=== PATIENT | female | born 1985 | race Caucasian/White ===

== ENCOUNTER 2018-11-08 12:41 | Emergency (ER) | payer OTHER ==
--- OUTSIDE RECORDS SUMMARY | 2018-11-08 12:55 | XMS REPORT | Continuity of Care Document ---
:1985 External Reference #:[id number] Author Name Oumou Pretty MD (transmitted by agent of provider Sierra Ellison) Address [address] [place] [id number] Care Team Providers Name Role Phone Tay Verduzco DO - Family Medicine Care Team Information [employer]ver [phone] Problems Active Problems Provider Date Mixed hyperlipidemia Tay Verduzco D.O. Onset: 12/19/2011 Benign essential hypertension Tay Verduzco D.O. 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 Onset: 2017 Peptic reflux disease Tay Verduzco D.O. Onset: 12/19/2011 Disorder of lumbar disc Tay Verduzco D.O. Onset: 12/19/2011 Neck pain Tay Verduzco D.O. Onset: 12/19/2011 Generalized anxiety disorder Tay Verduzco D.O. Onset: 12/19/2011 Chronic rhinitis Neelima Fajardo N.P. Onset: 09/26/2016 Moderate recurrent major depression Neelima Fajardo N.P. Onset: 11/04/2017 Gastroesophageal reflux disease Oumou Pretty MD Onset: 03/26/2018 Social History Type Date Description Comments Sex Unknown Tobacco Use Start: Unknown current cigarette smoker 1/2 ppd x 16yrs Smoking Status Reviewed: 11/02/18 current cigarette smoker 1/2 ppd x 16yrs ETOH Use Denies alcohol use Tobacco Use Start: Unknown Patient is a current 10 cigs/day since smoker, smokes every day age 14yo. Recreational Drug Use Denies Drug Use Guns in Home Yes Smoke Alarms Yes Allergies, Adverse Reactions, Alerts Active Allergies Reaction Severity Comments Date Augmentin caused MRSA 04/01/2017 Inactive Allergies NKDA 12/20/2011 Medications Active Medications SIG Qnty Indications Ordering Provider Date Adderall 1 tab by mouth 60tabs R41.840 Amogechukwu N 10/06/2018 20mg Tablets twice a day MD Maria De Jesus Buspirone HCL 1 tab by mouth 30tabs F40.248 Amogechukwu N 07/30/2018 10mg twice a day as MD Maria De Jesus Tablets needed Montelukast Sodium Take One Tablet 90tabs J45.909 Neelima Fajardo, N.P. 06/2018 By Mouth Every 10mg Tablets Day Omeprazole 1 by mouth 30caps K21.9 Amogechukwu N 03/26/2018 40mg every day MD Maria De Jesus Capsules DR Symbicort 2 puff twice a 1units J44.9 Neelima Fajardo, N.P. 07/01/2017 day 80-4.5mcg/Act Aerosol Vitamin D take 1 capsule 12caps E55.9 Neelima Fajardo, N.P. 05/30/2017 (Ergocalciferol) by mouth every week for 3 [id number] Capsules months Cetirizine HCL take one tablet 30tabs J31.0 Neelima Fajardo, N.P. 04/22/2017 10mg by mouth every Tablets day Ventolin HFA 2 puffs every 18units Neelima Fajardo, N.P. 03/20/2017 4-6hrs as 108(90Base) mcg/Act needed Aerosol Immunizations CPT Code Status Date Vaccine Lot # [id number] Given 06/15/2012 Tdap (Adacel) Ages 7 And Above Only 54038 Refused 12/25/2017 Influenza Virus Vaccine,Quadrivalent,Split,Preserv Free 3 Yrs+ [id number] Refused 02/26/2017 Influenza Virus Vaccine,Quadrivalent,Split,Preserv Free 3 Yrs+ 33673 Refused 01/11/2016 Influenza Vac, 3 Yrs & Older, Quadrivalent, Split, Im Use 09664 Refused 03/31/2015 Influenza Vac, 3 Yrs & Older, Quadrivalent, Split, [place] Use [address]13 Refused 03/03/2015 Influenza Vac, 3 Yrs & Older, Quadrivalent, Split, [place] Use [address]19 Refused 02/25/2015 Influenza Vac, 3 Yrs & Older, Quadrivalent, Split, Im Use 08835 Refused 12/24/2014 Influenza Vac, 3 Yrs & Older, Quadrivalent, Split, Im Use [id number] Refused 11/14/2014 Fluzone Trivalent Immunization Q2038 Refused 12/21/2013 Fluzone Trivalent Immunization Vital Signs Date Vital Result Comment 07/30/2018 12:33pm Body Temperature 98.6 F tympanic Weight 171.00 lb Heart Rate 110 /min BP Systolic Sitting 122 mmHg L Arm BP Diastolic Sitting 98 mmHg L Arm Respiratory Rate 20 /min Height 62 inches 5'2" BMI (Body Mass Index) 31.3 kg/m2 O2 % BldC Oximetry 100 % Room Air Height in cm's 157.5 cm 04/30/2018 9:04am Body Temperature 98.2 F tympanic Weight 173.00 lb Heart Rate 90 /min BP Systolic 110 mmHg L Arm BP Diastolic 80 mmHg L Arm Respiratory Rate 18 /min Height 62 inches 5'2" BMI (Body Mass Index) 31.6 kg/m2 O2 % BldC Oximetry 99 % Room Air Height in cm's 157.5 cm Results Description No Information Available Procedures Description No Information Available Medical Devices Description No Information Available Encounters Type Date Location Provider Dx Diagnosis Office Visit 07/30/2018 Compassionate Oumou Albert R41.840 Attention and 11:30a Family MD Maria De Jesus concentration [facility] deficit F40.248 Other situational type phobia Assessments Date Code Description Provider 07/30/2018 R41.840 Attention and concentration deficit Oumou Pretty MD 07/30/2018 F40.248 Other situational type phobia Oumou Pretty MD Plan of Treatment No Information Available Functional Status Description No Information Available Mental Status Description No Information Available Referrals Description No Information Available
--- OUTSIDE RECORDS SUMMARY | 2018-11-08 12:55 | XMS REPORT | Continuity of Care Document ---
:1985 External Reference #:[id number] Author Name Oumou Pretty MD Address [address] [place] [id number] Care Team Providers Name Role Phone Tay Verduzco DO - Family Medicine Care Team Information [employer] Client [employer] [phone] Problems Active Problems Provider Date Mixed hyperlipidemia [...] reflux disease Oumou Pretty MD Onset: 03/26/2018 Obesity Oumou Pretty MD Onset: 11/02/2018 Allergic rhinitis Oumou Pretty MD Onset: 11/02/2018 Mild intermittent asthma Oumou Pretty MD Onset: 11/02/2018 Social History Type Date Description Comments Sex [...] twice a day MD Maria De Jesus Montelukast Sodium Take One Tablet 90tabs J30.89 Ammartinu N 04/14/2018 By Mouth Every MD Maria De Jesus 10mg Tablets Day Omeprazole 1 by mouth 30caps K21.9 Ambrigittechsarikau N 03/26/2018 40mg every day MD Maria De Jesus Capsules DR Vitamin D take 1 capsule 12caps E55.9 Ambrigittechukwu N 05/30/2017 (Ergocalciferol) by mouth every MD Maria De Jesus week for 3 30195Mmmy Capsules months Cetirizine HCL take one tablet 30tabs J30.89 Tomásu N 04/22/2017 10mg by mouth every MD Maria De Jesus Tablets day Ventolin HFA 2 puffs every 18units J45.20 Oumou N 03/20/2017 4-6hrs as MD Maria De Jesus 108(90Base) mcg/Act needed Aerosol History Medications Buspirone HCL 1 tab by mouth 30tabs F40.248 Amogechwu N 07/30/2018 - twice a day as MD Maria De Jesus 11/02/2018 10mg Tablets needed Immunizations CPT Code Status Date Vaccine Lot # [id number] Given 06/15/2012 Tdap (Adacel) Ages 7 And Above Only 27194 Refused 11/02/2018 Influenza Virus Vaccine,Quadrivalent,Split,Preserv Free 3 Yrs+ 02300 Refused 11/02/2018 Influenza, Preservative Free 3 Years And Older 50846 Refused 12/25/2017 Influenza Virus Vaccine,Quadrivalent,Split,Preserv Free 3 Yrs+ 43955 Refused 02/26/2017 Influenza Virus Vaccine,Quadrivalent,Split,Preserv Free 3 Yrs+ 77153 Refused 01/11/2016 Influenza Vac, 3 Yrs & Older, Quadrivalent, Split, [place] Use 81412 Refused 03/31/2015 Influenza Vac, 3 Yrs & Older, Quadrivalent, Split, [place] Use 51053 Refused 03/03/2015 Influenza Vac, 3 Yrs & Older, Quadrivalent, Split, Im Use 16805 Refused 02/25/2015 Influenza Vac, 3 Yrs & Older, Quadrivalent, Split, [place] Use [address] Refused 12/24/2014 Influenza Vac, 3 Yrs & Older, Quadrivalent, Split, Im Use Q2038 Refused 11/14/2014 Fluzone Trivalent Immunization Q2038 Refused 12/21/2013 Fluzone Trivalent Immunization Vital Signs Date Vital Result Comment 11/02/2018 9:12am Body Temperature 97.9 F tympanic Weight 167.00 lb Heart Rate 86 /min BP Systolic Sitting 120 mmHg L Arm BP Diastolic Sitting 80 mmHg L Arm Respiratory Rate 18 /min Height 62 inches 5'2" BMI (Body Mass Index) 30.5 kg/m2 O2 % BldC Oximetry 98 % Room Air Height in cm's 157.5 cm 07/30/2018 12:33pm Body Temperature 98.6 F tympanic [...] type phobia Assessments Date Code Description Provider 11/02/2018 R41.840 Attention and concentration deficit Oumou Pretty MD 11/02/2018 F17.210 Nicotine dependence, cigarettes, Oumou Pretty MD uncomplicated 11/02/2018 E66.09 Other obesity due to excess calories Oumou Pretty MD 11/02/2018 K21.9 Gastro-esophageal reflux disease without Oumou Pretty MD esophagitis 11/02/2018 J30.89 Other allergic rhinitis Oumou Pretty MD 11/02/2018 J45.20 Mild intermittent asthma, uncomplicated Oumou Pretty MD 11/02/2018 E55.9 Vitamin D deficiency, unspecified Oumou Pretty MD 11/02/2018 Z23 Encounter for immunization Oumou Pretty MD 11/02/2018 Z28.21 Immunization not carried out because of Oumou Pretty MD patient refusal 11/02/2018 Z12.31 Encounter for screening mammogram for Oumou Prtety MD malignant neoplasm of breast 11/02/2018 Z68.30 Body mass index (BMI) 30.0-30.9, adult Oumou Pretty MD 07/30/2018 R41.840 Attention and concentration deficit Oumou Pretty MD 07/30/2018 F40.248 Other situational type phobia Oumou Pretty MD Plan of Treatment Future Appointment(s):04/12/2019 9:00 am - Oumou Pretty MD at [facility]03/15/2019 10:30 am - Oumou Pretty MD at [facility]02/01/2019 9:45 am - Oumou Pretty MD at [facility]11/02/2018 - Oumou Pretty, MDR41.840 Attention and concentration deficitFollow up: CPE/8oecfL88.210 Nicotine dependence, cigarettes, kqfmlpxvgzqqxJ57.09 Other obesity due to excess zrilblwsX59.9 Gastro-esophageal reflux disease without jpqcpksetuxY78.89 Other allergic cpgjhdgdJ90.20 Mild intermittent asthma, otmnyymlrrffmP59.9 Vitamin D deficiency, woksqqpistzN07 Encounter for qvdhyhdgsepgT76.21 Immunization not carried out because of patient ygacaueX84.31 Encounter for screening mammogram for malignant neoplasm of fdnmbcX92.30 Body mass index (BMI) 30.0-30.9, adult Functional Status Description No Information Available Mental Status Description No Information Available Referrals Description No Information Available
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
== END 2018-11-08 14:45 | disposition home or self-care (01) ==
LOC: UCEAST 12:41
DX: S16.1XXA Strain of muscle, fascia and tendon at neck level, initial encounter (principal); S40.012A Contusion of left shoulder, initial encounter; K21.9 Gastro-esophageal reflux disease without esophagitis; F90.9 Attention-deficit hyperactivity disorder, unspecified type; F17.210 Nicotine dependence, cigarettes, uncomplicated; Z79.899 Other long term (current) drug therapy; V43.62XA Car passenger injured in collision with other type car in traffic accident, initial encounter; Y92.9 Unspecified place or not applicable
CPT/HCPCS: 72050; 99203; G0463